=== PATIENT | male | born 1955 | race Caucasian/White ===

== ENCOUNTER 2017-08-31 12:53 | Outpatient (CLI) | payer OTHER ==
[2017-08-31 14:14] LABS: #Eosinphils 0.1 thou/uL (0.0-0.7); #Lymphocytes 3.1 thou/uL (1.20-3.40); #Monocytes 0.4 thou/uL (0.11-0.59); %Basophils 0.3 % (0.0-1.0); %Eosinophils 1.6 % (0.0-10.0); %Lymphocytes 40.4 % (21.0-51.0); %Monocytes 5.3 % (0.0-10.0); %Neutrophils 52.5 % (42.0-75.0); Hemoglobin 13.2 g/dL (14.0-18.0); Mean Corpuscular HGB CONC 33.2 g/dL (32.0-36.0); Mean Corpuscular Hemoglobin 30.9 pg (27.0-31.0); Mean Platelet Volume 8.1 fL (7.4-10.4); Platelet Count 180 thou/uL (130-400); RBC Distribution Width 12.1 % (11.5-14.5); Red Blood Cell (RBC) Count 4.28 mill/uL (4.70-6.10); White Blood Cell (WBC) Count 7.6 thou/uL (4.8-10.8)
[2017-08-31 14:33] LABS: Anion Gap 13 mmol/L (10-20); BUN (Urea Nitrogen) 28 mg/dL (8.4-25.7); Calc. Creatinine Clearance 0 mL/min (70-130); Calcium 9.7 mg/dL (7.8-10.44); Carbon Dioxide 23 mmol/L (23-31); Chloride 109 mmol/L (98-107); Estimated GFR-MDRD 67; Glucose 217 mg/dL (80-115); Potassium 3.9 mmol/L (3.5-5.1); Sodium 141 mmol/L (136-145)
--- NOTE | 2017-09-08 19:33 | EKG ---
Test Reason : Blood Pressure : / mmHG Vent. Rate : 069 BPM Atrial Rate : 069 BPM P-R Int : 196 ms QRS Dur : 082 ms QT Int : 394 ms P-R-T Axes : 047 003 001 degrees QTc Int : 422 ms Normal sinus rhythm Minimal voltage criteria for LVH, may be normal variant Borderline ECG No previous ECGs available Confirmed by FALLON JOHNSON (2) on 09/08/2017 7:32:44 PM Referred By: AIDAN Confirmed By:FALLON JOHNSON
== END 2017-08-31 12:54 | disposition home or self-care (01) ==
LOC: LABBT 12:53
PROVIDERS: ATTEND Specialist
DX: Z01.818 Encounter for other preprocedural examination (principal); D17.1 Benign lipomatous neoplasm of skin and subcutaneous tissue of trunk
CPT/HCPCS: 80048; 85025; 93005; 93010

== ENCOUNTER 2017-09-07 05:49 | Day surgery (SDC) | payer OTHER ==
[2017-08-31 13:19] VITALS: BMI 39.0
--- NOTE | 2017-09-01 11:19 | HP ---
HISTORY OF PRESENT ILLNESS: Oscar Ruff is a 62-year-old male who presents to my office with a very large lipoma in his left upper back present for the last 6-8 years, but enlarging and becoming bothe rsome to him. It measures 15 cm in diameter proximally. Plan is to excise this under general anesth esia as an outpatient and use a LANCE drain. He was informed of the risk of infection, bleeding, reoper ation, seroma accumulation and wound problems and consents. SOCIAL HISTORY: The patient is . He has moved here from [place], [place] 6 or 8 months ago. He is retired . He is busy with woodworking endeavors at home. ALLERGIES: None. TOBACCO: None. ALCOHOL: Occasionally, rarely. MEDICATIONS: None routinely. PAST MEDICAL HISTORY: Noncontributory. PAST SURGICAL HISTORY: L4-L5 surgery in 2000. Colonoscopy is up-to-date. REVIEW OF SYSTEMS: Ten point noncontributory. PHYSICAL EXAMINATION: VITAL SIGNS: Weight 291 pounds, 5 foot 11, 138/60, 72 heart rate, 99 degrees. HEENT: Unremarkable. LUNGS: Clear to auscultation. CARDIAC: Regular rate and rhythm without murmur or gallop. ABDOMEN: Soft, obese, nontender. EXTREMITIES: Unremarkable. Palpable pedal pulses. No ankle edema. NEUROLOGIC: Intact. No focal deficits. LYMPH: No lymphadenopathy in neck, groins, axilla. SKIN: Normal. Left upper back reveals 13-15 cm diameter soft tissue mass lipoma consistent with no skin changes. ASSESSMENT AND PLAN: Large lipoma, left upper back. Plan excision under anesthesia outpatient with follow up in office in 1 week.
[2017-09-07] MEDS ORDERED: Bupivacaine/Epinephrine 0.25% 30 ML VIAL ONE (06:33)
[2017-09-07] MEDS ORDERED: Fentanyl 100 MCG/2 ML VIAL ONE (06:46)
[2017-09-07] MEDS ORDERED: Midazolam HCl 2 mg/2 ml Vial ONE (06:46)
[2017-09-07] MEDS ORDERED: CEFAZOLIN/Water 2 GM/20 ML SYRINGE ONE (07:03)
[2017-09-07] MEDS ORDERED: Ketorolac Tromethamine 30 MG/ML VIAL ONE (07:03)
[2017-09-07] MEDS ORDERED: SUGAMMADEX SODIUM 200 MG/2 ML VIAL ONE (08:41)
--- NOTE | 2017-09-07 10:29 | OP ---
DATE OF PROCEDURE: 09/07/2017 PREOPERATIVE DIAGNOSIS: Very large lipoma, left upper back laterally. POSTOPERATIVE DIAGNOSIS: Very large lipoma, left upper back laterally with lipoma deep to the muscul ature. PROCEDURE: Resection of deep intramuscular lipoma, left upper back, 10 cm incision, layered closure, 15 cm in diameter lipoma. #19 Gold LANCE drain. SURGEON: Dr. Glenn Noguera ANESTHESIA: General. Local 0.25% Marcaine with epinephrine, 30 mL, mixed with 2% Xylocaine, 10 mL. PROCEDURE IN DETAIL: The patient was taken to the operating room where under general anesthesia in t he prone position, the upper back was prepared with ChloraPrep, draped in routine fashion. Local ane sthetic infiltrated into skin and subcutaneous tissue. Transverse skin incision made and carried acacia n through the skin and subcutaneous tissue and deep to the fascia, the muscle was split in the direct ion of its fibers, revealing an underlying large lipoma, which was dissected free from surrounding ti ssues, carefully excised, submitted to pathology. Hemostasis gained with the cautery. Wound irrigat ed. A #19 Gold LANCE drain placed through a separate inferior stab incision, skin back and brought into the wound and curled in the resection cavity. Good hemostasis noted. Subcutaneous tissues approxim ated with 3-0 Monocryl, skin with subdermal 4-0 Monocryl and DermaGlue applied. Drain secured with 3 -0 nylon suture and Op-Site.
[2017-09-07] MEDS ORDERED: Lidocaine 1% PF 5 ML VIAL ONE (13:58)
[2017-09-07] MEDS ORDERED: Glycopyrrolate 0.2 MG/ML 5 ML SYRINGE ONE (13:58)
[2017-09-07] MEDS ORDERED: Propofol 200 MG/20 ML VIAL ONE (13:58)
[2017-09-07] MEDS ORDERED: Dexamethasone 20 MG/5 ML VIAL ONE (13:58)
== END 2017-09-07 10:44 | disposition home or self-care (01) ==
LOC: SDC 05:49
PROVIDERS: ATTEND Specialist
PROC: 0JB70ZZ Excision of Back Subcutaneous Tissue and Fascia, Open Approach (ICD-10-PCS; principal; 2017-09-07)
PROC: 0JQ70ZZ Repair Back Subcutaneous Tissue and Fascia, Open Approach (ICD-10-PCS; principal; 2017-09-07)
DX: D17.1 Benign lipomatous neoplasm of skin and subcutaneous tissue of trunk (principal); Z90.49 Acquired absence of other specified parts of digestive tract; Z98.890 Other specified postprocedural states
CPT/HCPCS: 88304; J0131; J1100; J1885; J2001; J2250; J2704; J3010

== ENCOUNTER 2018-07-11 07:37 | Outpatient (CLI) | payer MEDICARE, OTHER ==
--- NOTE | 2018-07-11 09:13 | ULT ---
ULTRASOUND ABDOMINAL AORTA: HISTORY: Screening for abdominal aortic aneurysm. FINDINGS: The abdominal aorta measures about 1.6 cm in largest AP dimension. IMPRESSION: No evidence of abdominal aortic aneurysm. POS: VIANCA
== END 2018-07-11 07:38 | disposition home or self-care (01) ==
LOC: SCSULT 07:37
PROVIDERS: ATTEND Family Medicine
DX: Z13.6 Encounter for screening for cardiovascular disorders (principal); Z00.00 Encounter for general adult medical examination without abnormal findings
CPT/HCPCS: 76706

== ENCOUNTER 2021-02-02 08:46 | Outpatient (CLI) | payer MEDICARE, OTHER | END 2021-02-02 08:47 | disposition home or self-care (01) | LOC: BICMAMMO 08:46 | PROVIDERS: ATTEND Family Medicine | DX: N63.21 Unspecified lump in the left breast, upper outer quadrant (principal) | CPT/HCPCS: 19083; 76642; 77066; G0279; 88305; 88341; 88342 ==

== ENCOUNTER 2021-03-17 11:32 | Day surgery (SDC) | payer MEDICARE, OTHER ==
[2021-03-16 12:16] VITALS: BMI 39.3
== END 2021-03-17 18:10 | disposition home or self-care (01) ==
LOC: SDC 11:32
PROVIDERS: ATTEND Specialist
PROC: 0HBU0ZZ Excision of Left Breast, Open Approach (ICD-10-PCS; principal; 2021-03-17)
DX: D24.2 Benign neoplasm of left breast (principal); G47.33 Obstructive sleep apnea (adult) (pediatric); Z87.891 Personal history of nicotine dependence; Z79.82 Long term (current) use of aspirin; Z79.899 Other long term (current) drug therapy
CPT/HCPCS: 76098; 88307; J0690; J1100; J1885; J2405; J2704; J3010; S0020

== ENCOUNTER 2021-05-06 07:51 | Outpatient (CLI) | payer MEDICARE, OTHER | END 2021-05-06 07:52 | disposition home or self-care (01) | LOC: BICRAD 07:51 | PROVIDERS: ATTEND Internal Medicine Critical Care Medicine | DX: R06.00 Dyspnea, unspecified (principal) | CPT/HCPCS: 71046 ==

== ENCOUNTER 2021-12-30 09:22 | Outpatient (CLI) | payer MEDICARE, OTHER | END 2021-12-30 09:23 | disposition home or self-care (01) | LOC: RAD 09:22 | PROVIDERS: ATTEND Internal Medicine Critical Care Medicine | DX: R06.00 Dyspnea, unspecified (principal) | CPT/HCPCS: 71046 ==